=== PATIENT | female | born 1980 | race Caucasian/White ===

== ENCOUNTER 2017-01-26 21:21 | Emergency (ER) | payer MEDICAID ==
[~2017-01-26] VITALS: Ht 162.6 cm; Wt 100.2 kg
[2017-01-26 21:24] VITALS: BP 148/90
--- NOTE | 2017-01-27 00:02 | NUR ---
PT TAKEN TO BED 4
[2017-01-27 00:03] VITALS: BP 148/90
--- NOTE | 2017-01-27 00:06 | NUR ---
PT IS 36Y/F C/O LEFT ARM PAIN, AND NUMBNESS FOR 2 DAYS
[2017-01-27] MEDS ORDERED: KETOROLAC 30 MG/ML VIAL IVP ONE (00:25)
== END 2017-01-27 01:45 | disposition home or self-care (01) ==
LOC: MED 21:21
DX: M25.512 Pain in left shoulder (principal); R20.0 Anesthesia of skin; R51 Headache; M54.2 Cervicalgia
CPT/HCPCS: 36415; 80053; 82553; 83880; 84484; 85025; 85379; 85610; 85730; 93005; 96374; 99285; J1885

== ENCOUNTER 2020-04-13 14:27 | Inpatient (IN) | payer MEDICAID, SELFPAY ==
[~2020-04-13] VITALS: Ht 170.2 cm; Wt 104.8 kg
[2020-04-13 14:32] VITALS: BP 157/94
--- NOTE | 2020-04-13 14:46 | NUR ---
COVID HOSPITAL POLICY FOLLOWED PT WITH MASK BEFORE ENTERING ER PT PLACED IN ISOLATION ROOM COVID COVID SIGN AT BEDSIDE RN FULL PPE
--- NOTE | 2020-04-13 14:46 | NUR ---
39 Y/O F C/C MYALGIA,COUGH,H/A X 8 DAYS. PER PT SEEN AT A CLINIC WEDNESDAY DUE TO FEVER, GIVEN IBUPROFEN PRN. PT PRESENTS IN NO RESPIRATORY DISTRESS, EUPNIC, AFEBRILE, VSS. 96% RA, EQUAL TIDAL VOLUME, LS CLEAR. S1S2 WNL. PT NKA. NO HX. NO RX. NO NVD. SIDE RAIL X1. Addendum: 04/13/20 at 1450 by MEDOF PER PT HEMOPTYSIS X 2 DAYS.
--- NOTE | 2020-04-13 15:05 | NUR ---
PT PLACED FULL FOWLERS. 92% RA. NO RESPIRATORY DISTRESS. DENIES SOB. PT EUPNIC. PLACED ON 2L NC FOR COMFORT.
--- NOTE | 2020-04-13 15:40 | NUR ---
PT ON ROOM AIR PER ERMD. 92% RA. EUPNIC. WILL CONTINUE TO MONITOR. ERMD NOTIFIED.
--- NOTE | 2020-04-13 15:45 | NUR ---
RAD AT BEDSIDE
[2020-04-13] MEDS ORDERED: KETOROLAC 30 MG/ML VIAL IVP ONE (16:00)
--- NOTE | 2020-04-13 16:43 | NUR ---
RT AT BEDSIDE
--- NOTE | 2020-04-13 16:45 | NUR ---
BLOOD COLLECTED AND GIVEN TO LAB
--- NOTE | 2020-04-13 16:45 | NUR ---
COVID SWAB/FLU SWAB COLLECTED AND GIVEN TO LAB
--- NOTE | 2020-04-13 16:45 | NUR ---
PT PLACED IN FULL FOWLERS, 2L NC, PT EUPNIC. NO RESPIRATORY DISTRESS. SIDE RAIL X1.
[2020-04-13] MEDS ORDERED: AZITHROMYCIN 500 MG in DEXTROSE 5% 250 ML IV ONE (17:00)
[2020-04-13 17:02] LABS: BASOPHILS % (AUTO) 0.8 % (0.0-2.0); HEMOGLOBIN 12.8 g/dL (12.0-16.0); LYMPHOCYTES # (AUTO) 0.8 K/uL (2.5-16.5); LYMPHOCYTES % (AUTO) 25.7 % (20.5-51.1); MEAN CORPUSCULAR HEMOGLOBIN 28 pg (27-31); MEAN CORPUSCULAR HGB CONC 34 g/dL (33-37); MONOCYTES # (AUTO) 0.3 K/uL (0.8-1.0); MONOCYTES % (AUTO) 9.8 % (1.7-9.3); NEUTROPHILS # (AUTO) 2.1 K/uL (1.8-7.7); NEUTROPHILS % (AUTO) 63.7 % (42.2-75.2); PLATELET COUNT (AUTO) 215 K/uL (140-450); RED BLOOD CELL COUNT(AUTO) 4.58 MIL/uL (4.20-5.40); RED CELL DISTRIBUTION WIDTH 15.2 % (11.6-13.7); WHITE BLOOD COUNT (AUTO) 3.2 K/uL (4.8-10.8)
[2020-04-13] MEDS ORDERED: cefTRIAXone 1,000 MG VIAL ONE (17:03)
[2020-04-13 17:06] LABS: APPEARANCE,URINE SL CLOUDY (CLEAR); BILIRUBIN,URINE NEGATIVE (NEGATIVE); BLOOD, URINE 1+ (NEGATIVE); COLOR,URINE DARK YELLOW (YELLOW); LEUKOCYTE ESTERASE ,URINE NEGATIVE (NEGATIVE); NITRITE, URINE NEGATIVE (NEGATIVE); UGLUCOSE NEGATIVE (NEGATIVE)
[2020-04-13 17:11] LABS: PROTHROMBIN TIME 9.3 secs (10.8-13.4)
[2020-04-13 17:13] LABS: ALBUMIN 2.9 g/dL (3.4-5.0); ANION GAP 9.6 (8-16); CARBON DIOXIDE 31.3 mmol/L (21-32); CREATININE 0.7 mg/dL (0.6-1.3); TOTAL BILIRUBIN 0.4 mg/dL (0.0-1.0)
[2020-04-13] MEDS ORDERED: AZITHROMYCIN 500 MG INJ VIAL IV ONE (17:13)
[2020-04-13 17:14] LABS: POTASSIUM 2.9 mmol/L (3.5-5.1)
[2020-04-13 17:19] LABS: C-REACTIVE PROTEIN QUANT 12.8 mg/dL (0.0-0.9)
[2020-04-13] MEDS ORDERED: KCL 20 MEQ/WATER INJ PREMIX 100 ML IV ONE (17:20)
[2020-04-13 17:24] LABS: WBC,URINE 0-5 /HPF (0-5)
[2020-04-13 17:30] LABS: LACTATE DEHYDROGENASE 311 U/L (81-234)
[2020-04-13 19:09] VITALS: BP 144/95
--- NOTE | 2020-04-13 19:09 | NUR ---
PATIENT RECEIVED FROM ED ESCORTED BY ED NURSE. PATIENT AMBULATORY NO SIGNS OF DISTRESS NOTED. RESPIRATIONS EVEN AND UNLABORED ON 2L O2 VIA NC SPO2 AT 96%. IV INTACT AND RUNNING WITH REMAINING POTASSIUM. TELE MONITOR ATTACHED AND CONTINUOUS SPO2 MONITORING IN PLACE. PATIENT ORIENTED TO ROOM. PATIENT STATES SHE IS HUNGRY REQUESTED FOR A SANDWICH TO BE SENT OVER FROM [employer]. WILL CONTINUE TO MONITOR
--- NOTE | 2020-04-13 19:17 | NUR ---
Patient will be admitted to care of [facility]. Admited to TELEMETRY. Will go to room 115. Belongings list completed. Report to LA NENA CASTILLO.
[2020-04-13] MEDS: NACL 0.9% 1,000 ML IV SCH (19:26)
[2020-04-13] MEDS ORDERED: ACETAMINOPHEN 325 MG TAB PO PRN (19:30)
[2020-04-13] MEDS ORDERED: ONDANSETRON 4 MG/2 ML VIAL IM/IVP PRN (19:30)
[2020-04-13] MEDS ORDERED: POTASSIUM CHLORIDE 10 MEQ TABER PO ONE ×2 (19:35→20:48)
[2020-04-13] MEDS ORDERED: ALBUTEROL HFA MDI 90 MCG/ACTUATION 8 GM INH PRN (19:45)
[2020-04-13 19:59] LABS: BARBITURATE, URINE NEGATIVE ng/ml (NEG <=200); BENZODIAZEPINE, URINE NEGATIVE ng/mL (NEG <=200); CANNABINOID, URINE NEGATIVE ng/mL (NEG <=50); COCAINE, URINE NEGATIVE ng/mL (NEG <=300); OPIATE, URINE NEGATIVE ng/mL (NEG <=2000); PHENCYCLIDINE SCREEN,URINE NEGATIVE ng/mL (NEG <=25)
[2020-04-13 20:13] LABS: CHOL/HDL RATIO 2.5 (1-4.5); FREE T4 (FREE THYROXINE) 0.97 ng/dL (0.76-1.46); MAGNESIUM 1.9 mg/dL (1.8-2.4); PHOSPHORUS 2.2 mg/dL (2.5-4.9); THYROID STIMULATING HORMONE 12.96 uIU/mL (0.34-3.74)
[2020-04-13] MEDS: ZINC SULF 220 MG CAP PO SCH (20:51)
[2020-04-13] MEDS: ASCORBIC ACID 500 MG TAB PO SCH (20:51)
--- NOTE | 2020-04-13 20:51 | NUR ---
ADMINISTERED 2100 MEDICATIONS THAT WERE VERIFIED. PATIENT TOLERATED WELL NO SIGNS OF DISTRESS NOTED. RESPIRATIONS EVEN AND UNLABORED ON 2L O2 VIA NC. SPO2 AT 97%. ALL MONITORS ATTACHED, IV INFUSING WITHOUT DIFFICULTY AND CALL LIGHT WITHIN REACH
[2020-04-13] MEDS ORDERED: SODIUM PHOS / POTASSIUM PHOS 1 PKT PDR PO ONE (22:25)
[2020-04-13] MEDS: ENOXAPARIN 100 MG/ML SYR SUBQ SCH (22:41)
--- NOTE | 2020-04-13 22:41 | NUR ---
ADMINISTERED 2225 MEDICATION THAT WAS JUST VERIFIED. I WAS ABOUT TO ENTER THE PATIENTS ROOM TO ADMINISTER MEDICATIONS THE PATIENT INDICATED THAT SHE WAS EXPERIENCING BODY ACHE 6/10 GENERALIZED. STATES ITS HARD FOR HER TO REPOSITION HERSELF. I WENT TO GET NORCO AND MEDICATED PER MD ORDER. OTHER MEDICATIONS WERE SCANNED IN PRIOR TO ENTERING THE ROOM DUE TO COVID-19 DROPLET PRECAUTIONS. I DID NOT REMEMBER TO SCAN THE NORCO THAT WAS GRABBED AT THE LAST MINUTE. I DOCUMENTED THE ADMINISTRATION AFTER THE FACT. AND INDICATED THE CORRECT ADMINISTRATION TIME UNDER THE ASSESSMENT PORTION. PATIENT TOLERATED WELL NO SIGNS OF DISTRESS NOTED. WILL REASSESS PAIN. MD REQUESTED A SPUTUM SAMPLE TO BE OBTAINED. PLACED SPECIMEN CUP IN THE ROOM WITH THE PATIENT AND EXPLAINED WHEN SHE COUGHED UP SPUTUM TO PLACE IT IN THE CUP AND INFORM ME TO TAKE TO THE LAB. PATIENT VERBALIZED UNDERSTANDING. WILL FOLLOW-UP
--- NOTE | 2020-04-13 23:41 | NUR ---
PAIN REASSESSED. PATIENT IS RESTING. NO SIGNS OF DISTRESS NOTED. RESPIRATIONS ARE EVEN AND UNLABORED ON 2L O2 AND SPO2 AT 97%. WILL CONTINUE TO MONITOR
[2020-04-14] VITALS: BP 124/75
[2020-04-14] MEDS: HYDROcodone/APAP 7.5/325 MG 1 TAB PO PRN ×2 (00:43→12:57)
--- NOTE | 2020-04-14 02:30 | NUR ---
ROUNDING. PATIENT IS AWAKE. STATES SHE FEELS WARM. TEMPERATURE ASSESSED AND WNL. ROOM TEMP FELT WARM DECREASED TEMP IN THE ROOM A FEW DEGREES FOR PATIENT COMFORT
[2020-04-14 04:00] VITALS: BP 136/84
--- NOTE | 2020-04-14 04:30 | NUR ---
OBTAINED AM VITALS. PATIENT RESTING NO SIGNS OF DISTRESS NOTED. RESPIRATIONS EVEN AND UNLABORED ON 2L SPO2 AT 96%. ALL MONITORS ATTACHED WILL CONTINUE TO MONITOR
--- NOTE | 2020-04-14 06:25 | NUR ---
ROUNDING PATIENT RESTING NO SIGN OF DISTRESS NOTED. ALL MONITORS ATTACHED WILL CONTINUE TO MONITOR
[2020-04-14 06:45] LABS: BASOPHILS % (AUTO) 0.6 % (0.0-2.0); EOSINOPHILS % (AUTO) 0.5 % (0.0-4.0); HEMATOCRIT 36.2 % (36-48); HEMOGLOBIN 12.1 g/dL (12.0-16.0); LYMPHOCYTES # (AUTO) 1.1 K/uL (2.5-16.5); LYMPHOCYTES % (AUTO) 36.9 % (20.5-51.1); MEAN CORPUSCULAR HEMOGLOBIN 28 pg (27-31); MEAN CORPUSCULAR HGB CONC 33 g/dL (33-37); MEAN CORPUSCULAR VOLUME 83.4 fL (80-94); MONOCYTES # (AUTO) 0.3 K/uL (0.8-1.0); MONOCYTES % (AUTO) 9.9 % (1.7-9.3); NEUTROPHILS # (AUTO) 1.6 K/uL (1.8-7.7); NEUTROPHILS % (AUTO) 52.1 % (42.2-75.2); PLATELET COUNT (AUTO) 211 K/uL (140-450); RED BLOOD CELL COUNT(AUTO) 4.34 MIL/uL (4.20-5.40); RED CELL DISTRIBUTION WIDTH 15.3 % (11.6-13.7); WHITE BLOOD COUNT (AUTO) 3.1 K/uL (4.8-10.8)
[2020-04-14 07:01] LABS: ALBUMIN 2.4 g/dL (3.4-5.0); ANION GAP 9.7 (8-16); CREATININE 0.6 mg/dL (0.6-1.3); MAGNESIUM 1.9 mg/dL (1.8-2.4); PHOSPHORUS 2.6 mg/dL (2.5-4.9); POTASSIUM 3.7 mmol/L (3.5-5.1); TOTAL BILIRUBIN 0.3 mg/dL (0.0-1.0)
--- NOTE | 2020-04-14 07:21 | NUR ---
ENDORSED PATIENT TO DAYSHIFT NURSE FOR CONTINUITY OF CARE. PATIENT IN STABLE CONDITION
--- NOTE | 2020-04-14 07:22 | NUR ---
RECEIVED REPORT FROM TEST CASE DEVELOPER NURSE. PT IN BED. AOX4, NO C/O PAIN, NO SOB, RESPIRATIONS ARE EVEN AND UNLABORED. ON 2LPM O2 VIA NC. WITH IV ON RH 20G RUNNING NS AT 60CC/HR AND LW 22G. WITH SKIN INTACT. SAFETY MEASURES IN PLACE. CALL LIGHT WITHIN REACH. WILL CONTINUE TO MONITOR.
[2020-04-14] MEDS: LEVOTHYROXINE 0.05 MG TAB PO SCH (07:30)
--- NOTE | 2020-04-14 07:44 | NUR ---
PATIENT HAS BEEN SCREENED AND CATEGORIZED HIGH NUTRITION RISK. PATIENT WILL BE SEEN WITHIN 1-2 DAYS OF ADMISSION. 04/14/20-04/15/20 ALEC BENJAMIN MS, RDN
[2020-04-14 08:00] VITALS: BP 125/87
--- NOTE | 2020-04-14 08:57 | NUR ---
PT IN NO DISTRESS AT THIS TIME SAT 96 HR 68 ON 2LNC PT WAS EDUCATED ON IS PT DID 8 BREATHS AT 650-700
[2020-04-14] MEDS: LACTOBACILLUS RHAMNOSUS GG 1 EACH CAP PO SCH (09:00)
[2020-04-14] MEDS: ENOXAPARIN 100 MG/ML SYR SUBQ SCH ×2 (09:00→21:15)
[2020-04-14] MEDS: LISINOPRIL 10 MG TAB PO SCH (09:00)
[2020-04-14] MEDS: ASCORBIC ACID 500 MG TAB PO SCH (09:00)
[2020-04-14] MEDS: ZINC SULF 220 MG CAP PO SCH (09:00)
--- NOTE | 2020-04-14 09:35 | NUR ---
DUE MEDS GIVEN. TOLERATED WELL. ASSISTED TO BATHROOM
[2020-04-14 12:00] VITALS: BP 139/92
--- NOTE | 2020-04-14 12:50 | NUR ---
WITH C/O BACK PAIN 05/17. NORCO GIVEN ORDERED. WILL REASSESS IN 1 HOUR
[2020-04-14] MEDS: NACL 0.9% 1,000 ML IV SCH ×2 (12:56→21:37)
--- NOTE | 2020-04-14 14:30 | NUR ---
PT IN BED. NO C/O PAIN, NO SOB, AFEBRILE, NO COMPLAINTS AT THIS TIME
[2020-04-14 16:00] VITALS: BP 136/82
[2020-04-14] MEDS ORDERED: MORPHINE SULFATE 2 MG/ML SYR IVP PRN (16:00)
[2020-04-14] MEDS: BENZONATATE 100 MG CAPLF PO SCH (17:01)
[2020-04-14] MEDS: AZITHROMYCIN 250 MG in DEXTROSE 5% 250 ML IV SCH (17:01)
--- NOTE | 2020-04-14 17:15 | NUR ---
PT IN BED WATCHING TV. NO APPARENT DISTRESS. NO COMPLAINTS AT THIS TIME. DUE AZITHROMYCIN IVPB GIVEN ORDERED. INFUSING WELL
--- NOTE | 2020-04-14 18:45 | NUR ---
WILL ENDORSE TO NEXT SHIFT FOR CONTINUITY OF CARE. IN STABLE CONDITION AT THIS TIME
--- NOTE | 2020-04-14 19:00 | NUR ---
RECEIVED PT FROM ROSITA RN PT IS AAOX4 AMBULATORY S[CRISSY S[PARAGLER PM TELEMETRY SR IV O;N; RT HAND INFUSING WELL DRY COUGH NOT DISTRESS NOTED, ON 12 10 LTS VIA NC
[2020-04-14 20:00] VITALS: BP 136/89
--- NOTE | 2020-04-14 22:00 | NUR ---
PT IS ASSISTED TO THE RESTROOM NOT DISTRESS NOTED PT VOIDING WELL ON TELEMETRY SR
[2020-04-15] VITALS: BP 123/79
--- NOTE | 2020-04-15 02:17 | NUR ---
PT SLEEPING WELL, NOT DISTRESS NOTED ON 12 10 LTS VIA NC ON TELEMETRY SR
[2020-04-15 04:00] VITALS: BP 138/90
--- NOTE | 2020-04-15 04:00 | NUR ---
SPONGE BATH GIVEN LINEN CHANGED, PT IS ASSISTED TO GO TO THE RESTROOM, VOIDING WELL, ON TELEMETRY SSR IV ON RT YOLANDA INFUSING WELL
[2020-04-15] MEDS: LEVOTHYROXINE 0.05 MG TAB PO SCH (05:49)
[2020-04-15 06:59] LABS: BASOPHILS % (AUTO) 0.7 % (0.0-2.0); EOSINOPHILS % (AUTO) 0.5 % (0.0-4.0); HEMATOCRIT 36.5 % (36-48); LYMPHOCYTES # (AUTO) 1.1 K/uL (2.5-16.5); LYMPHOCYTES % (AUTO) 27.3 % (20.5-51.1); MEAN CORPUSCULAR HEMOGLOBIN 28 pg (27-31); MEAN CORPUSCULAR HGB CONC 33 g/dL (33-37); MONOCYTES # (AUTO) 0.6 K/uL (0.8-1.0); MONOCYTES % (AUTO) 14.1 % (1.7-9.3); NEUTROPHILS # (AUTO) 2.4 K/uL (1.8-7.7); NEUTROPHILS % (AUTO) 57.4 % (42.2-75.2); PLATELET COUNT (AUTO) 242 K/uL (140-450); RED BLOOD CELL COUNT(AUTO) 4.34 MIL/uL (4.20-5.40); RED CELL DISTRIBUTION WIDTH 15.7 % (11.6-13.7); WHITE BLOOD COUNT (AUTO) 4.1 K/uL (4.8-10.8)
--- NOTE | 2020-04-15 07:00 | NUR ---
PT AMBULATES TO THE RESTROOM VOIDING WELL ON TELE SR, NOT SPUTUM CAN BE COLLECTED PT HAS VERY DRY COUGH, PT WILL BE ENDORSED TO DAY SHIFT NURSE FOR CONTINUE OF CARE
--- NOTE | 2020-04-15 07:05 | NUR ---
RECEIVED BEDSIDE REPORT FROM NIGHTSHIFT NURSE. PT RESTING IN BED. ABLE TO MAKE NEEDS KNOWN. RESPIRATIONS EVEN AND UNLABORED WITH NO SOB OR RESPIRATORY DISTRESS. SKIN WARM AND DRY TO TOUCH. IV SITE IN R HAND 22G IS CLEAN, DRY, AND INTACT. SAFETY MEASURES IN PLACE. WILL CONTINUE TO MONITOR
[2020-04-15 08:00] VITALS: BP 129/84
[2020-04-15 08:25] LABS: ANION GAP 9.1 (8-16); CARBON DIOXIDE 30.4 mmol/L (21-32); POTASSIUM 3.5 mmol/L (3.5-5.1)
[2020-04-15 08:26] LABS: CREATININE 0.4 mg/dL (0.6-1.3)
[2020-04-15 08:27] LABS: ALBUMIN 2.5 g/dL (3.4-5.0); TOTAL BILIRUBIN 0.4 mg/dL (0.0-1.0)
[2020-04-15] MEDS: ENOXAPARIN 100 MG/ML SYR SUBQ SCH ×2 (09:35→21:24)
[2020-04-15] MEDS: ASCORBIC ACID 500 MG TAB PO SCH (09:37)
[2020-04-15] MEDS: LACTOBACILLUS RHAMNOSUS GG 1 EACH CAP PO SCH (09:37)
[2020-04-15] MEDS: ZINC SULF 220 MG CAP PO SCH (09:38)
[2020-04-15] MEDS: BENZONATATE 100 MG CAPLF PO SCH ×3 (09:38→16:29)
[2020-04-15] MEDS: LISINOPRIL 10 MG TAB PO SCH (09:39)
--- NOTE | 2020-04-15 09:44 | NUR ---
ADMINISTERED SCHED MED PRESCRIBED PER MD ORDER. PT TOLERATED WELL. MEDICATION EDUCATION PERFORMED. PT RETURN DEMONSTRATION. SAFETY MEASURES IN PLACE. WILL CONTINUE TO MONITOR
--- NOTE | 2020-04-15 11:15 | NUR ---
PT RESTING IN BED. ABLE TO MAKE NEEDS KNOWN. RESPIRATIONS EVEN AND UNLABORED WITH NO SOB OR RESPIRATORY DISTRESS. SKIN WARM AND DRY TO TOUCH. SAFETY MEASURES IN PLACE. WILL CONTINUE TO MONITOR
[2020-04-15 12:00] VITALS: BP 126/84
--- NOTE | 2020-04-15 13:12 | NUR ---
ADMINISTERED SCHED MED PRESCRIBED PER MD ORDER. PT TOLERATED WELL. MEDICATION EDUCATION PERFORMED. PT RETURN DEMONSTRATION. SAFETY MEASURES IN PLACE. WILL CONTINUE TO MONITOR
--- NOTE | 2020-04-15 13:21 | NUR ---
DC PLANNIN YRS OLD FEMALE PATIENT WAS ADMITTED FROM HOME WITH A DX OF PNEUMONIA R/O COVID AND HYPOXIA. PT HAS NO MEDICAL HISTORY. CXR SHOWED MILD PATCHY AIRSPACE VS INFILTRATE. COVID TEST POSITIVE .SPUTUM, BLOOD AND URINE CULTURE PENDING. ADMINISTERED FULL DOSE OF ANTICOAGULANT , RAMDESEVIR IV, ROCEPHIN AND AZITHROMYCIN . RT PROTOCOL SEEN BY VICTOR HUGO WESTON RECOMMENDED ENROLLMENT IN CONVALESCENT PLASMA AND ENCOURAGE PRONE POSITION. DC PLAN TO GO HOME WHEN STABLE CM TO FOLLOW. Addendum: 04/16/20 at 1242 by Danielle Summers CM DC PLANNING: SEEN BY VICTOR HUGO WESTON CONTINUE REMDISIVIR AND AWAITING FOR CONVALESCENT PLASMA . OFF ABX PER ID ,CONTINUE FULL DOSE OF ANTICOAGULATION. AND RECOMMENDED AND ENCOURAGE PRONE POSITION. DC PLAN PER PT'S RESPONSE TO TREATMENTS. CM TO FOLLOW .
--- NOTE | 2020-04-15 13:30 | NUR ---
04/15/20 RD INITIAL ASSESSMENT COMPLETED PLEASE REFER TO NUTRITION ASSESSMENT UNDER CARE ACTIVITY FOR ESTIMATED NUTRITIONAL NEEDS. 1. CONTINUE REGULAR DIET TOLERATED 2. RECOMMEND ENSURE BID 3. ENCOURAGE INCREASING PO INTAKE 4. RD TO FOLLOW-UP 3-5 DAYS, MODERATE RISK HILTON DISLA, RD
--- NOTE | 2020-04-15 14:00 | NUR ---
RESIDENT ORDERED CONSENT FOR PLASMA COVID ANTIBODIES. WENT OVER INSTRUCTIONS WITH PT. PT VERBALIZED UNDERSTANDING AND SIGNED CONSENT. CONSENT HANDED BACK TO DR. GERONIMO. WILL CONTINUE TO MONITOR
--- NOTE | 2020-04-15 14:42 | NUR ---
Echocardiogram pending due to Positive COVID-19, Dr. Palomino said to hold off on the echo.
[2020-04-15 16:00] VITALS: BP 129/84
--- NOTE | 2020-04-15 16:37 | NUR ---
ADMINISTERED SCHED MED PRESCRIBED PER MD ORDER. PT TOLERATED WELL. MEDICATION EDUCATION PERFORMED. PT RETURN DEMONSTRATION. SAFETY MEASURES IN PLACE. WILL CONTINUE TO MONITOR
[2020-04-15] MEDS: AZITHROMYCIN 250 MG in DEXTROSE 5% 250 ML IV SCH (17:52)
--- NOTE | 2020-04-15 17:53 | NUR ---
ADMINISTERED SCHED MED PRESCRIBED PER MD ORDER. PT TOLERATED WELL. MEDICATION EDUCATION PERFORMED. PT RETURN DEMONSTRATION. SAFETY MEASURES IN PLACE. WILL CONTINUE TO MONITOR
--- NOTE | 2020-04-15 19:10 | NUR ---
ENDORSED AT BEDSIDE TO NIGHTSHIFT NURSE FOR CONTINUITY OF CARE. PT IS STABLE
--- NOTE | 2020-04-15 19:11 | NUR ---
RECEIVED BEDSIDE REPORT FROM AM SHIFT NURSEZOË. PT A O X 4, AMBULATORY.PT RESTING IN BED. ABLE TO MAKE NEEDS KNOWN. RESPIRATIONS EVEN AND UNLABORED WITH NO SOB OR RESPIRATORY DISTRESS. SKIN WARM AND DRY TO TOUCH. IV SITE IN R HAND 22G CLEAN, DRY, INTACT W/ IVF RUNNING AT ORDERED DOSE. SAFETY MEASURES IN PLACE. WILL CONTINUE TO MONITOR.
--- NOTE | 2020-04-15 19:12 | NUR ---
PATIENT C/O OF HAVING CONSTIPATION WILL ADMINISTER COLACE ORDERED PRN
[2020-04-15] MEDS: NACL 0.9% 1,000 ML IV SCH (22:06)
--- NOTE | 2020-04-15 23:00 | NUR ---
PATIENT SLEEPING, NO RESPIRATORY DISTRESS, NO COMPLAINTS OF PAIN
[2020-04-16] VITALS: BP 142/91
--- NOTE | 2020-04-16 01:00 | NUR ---
PATIENT SLEEPING, NO COMPLAINTS OF PAIN AND RESPIRATORY DISTRESS
[2020-04-16] MEDS: DOCUSATE SODIUM 100 MG GELCAP PO PRN (02:45)
--- NOTE | 2020-04-16 03:00 | NUR ---
CHECKED ON PATIENT, SLEEPING EASILY AROUSABLE, WILL ENDORSE TO NEXT SHIFT
[2020-04-16 04:00] VITALS: BP 136/72
--- NOTE | 2020-04-16 05:00 | NUR ---
PT SLEEPING NO SIGNS AND SYMPTOMS OF RESPIRATORY DISTRESS WILL ENDORSE TO NEXT SHIFT
[2020-04-16] MEDS: LEVOTHYROXINE 0.05 MG TAB PO SCH (05:08)
--- NOTE | 2020-04-16 06:49 | NUR ---
PT STABLE CONDITION, A, A, O X 4. WILL ENDORSE TO NEXT SHIFT
[2020-04-16 07:03] LABS: ALBUMIN 2.5 g/dL (3.4-5.0); ANION GAP 11.7 (8-16); CARBON DIOXIDE 29.7 mmol/L (21-32); CREATININE 0.7 mg/dL (0.6-1.3); PHOSPHORUS 2.9 mg/dL (2.5-4.9); POTASSIUM 3.4 mmol/L (3.5-5.1); TOTAL BILIRUBIN 0.4 mg/dL (0.0-1.0)
--- NOTE | 2020-04-16 07:20 | NUR ---
RECEIVED BEDSIDE REPORT FROM STORE RECEIVING CLERK RNJULIA, FOR CONTINUITY OF CARE. PT AOX4, AMBULATORY. PT RESTING IN BED. ABLE TO MAKE NEEDS KNOWN. PT. ON 2LPM O2 VIA NC, RESPIRATIONS EVEN AND UNLABORED WITH NO SOB OR RESPIRATORY DISTRESS, SAO2 OF 97%. SKIN WARM AND DRY TO TOUCH. IV SITE IN R HAND 22G CLEAN, DRY, INTACT W/ IVF RUNNING AT ORDERED DOSE. SAFETY MEASURES IN PLACE. DROPLET PRECAUTION IN PLACE. PLAN OF CARE DISCUSSED. CALL LIGHT WITHIN REACH. WILL CONTINUE TO MONITOR.
[2020-04-16 07:25] LABS: BASOPHILS % (AUTO) 0.4 % (0.0-2.0); EOSINOPHILS # (AUTO) 0.1 K/uL (0-0.4); EOSINOPHILS % (AUTO) 1.6 % (0.0-4.0); HEMATOCRIT 37.3 % (36-48); HEMOGLOBIN 12.5 g/dL (12.0-16.0); LYMPHOCYTES # (AUTO) 1.1 K/uL (2.5-16.5); LYMPHOCYTES % (AUTO) 32.8 % (20.5-51.1); MEAN CORPUSCULAR HEMOGLOBIN 28 pg (27-31); MEAN CORPUSCULAR HGB CONC 34 g/dL (33-37); MEAN CORPUSCULAR VOLUME 83.4 fL (80-94); MONOCYTES # (AUTO) 0.6 K/uL (0.8-1.0); MONOCYTES % (AUTO) 17.3 % (1.7-9.3); NEUTROPHILS # (AUTO) 1.5 K/uL (1.8-7.7); NEUTROPHILS % (AUTO) 47.9 % (42.2-75.2); PLATELET COUNT (AUTO) 273 K/uL (140-450); RED BLOOD CELL COUNT(AUTO) 4.48 MIL/uL (4.20-5.40); RED CELL DISTRIBUTION WIDTH 15.3 % (11.6-13.7); WHITE BLOOD COUNT (AUTO) 3.2 K/uL (4.8-10.8)
[2020-04-16 08:00] VITALS: BP 141/86
[2020-04-16] MEDS ORDERED: REMDESIVIR 200 MG IV SCH (09:00)
[2020-04-16] MEDS ORDERED: COMMUNICATION ORDER MC SCH (09:00)
--- NOTE | 2020-04-16 09:00 | NUR ---
PT. ASSESSED. RESPIRATIONS EVEN AND NON-LABORED, WITH SAO2 OF 96%. NO SIGNS OF DISTRESS. PT. COMPLAINS OF DIFFICULTY DEEP BREATHING, LUNG SOUNDS WITH CRACKLES. REFUSES PAIN MEDICATIONS BUT WILL TAKE COUGH MEDICATION INSTEAD. INTERMITTENT DRY COUGH PRESENT. HEART SOUNDS REGULAR, S1 &S2, BILATERAL PULSES EQUAL WITH 75 BPM. NO EDEMA PRESENT. IV INTACT. WILL CONTINUE TO MONITOR.
--- NOTE | 2020-04-16 09:00 | NUR ---
SCHEDULED MEDICATIONS DUE GIVEN. WILL CONTINUE TO MONITOR. Addendum: 04/16/20 at 2130 by Henry Zurita RN DISREGARD NOTE ABOVE, WRONG TIME
[2020-04-16] MEDS: ENOXAPARIN 100 MG/ML SYR SUBQ SCH ×2 (09:25→20:03)
--- NOTE | 2020-04-16 09:25 | NUR ---
MORNING MEDICATIONS GIVEN. NO SIGNS OF DISTRESS NOTED. PT. VERBALIZES NO PAIN. WILL CONTINUE TO MONITOR.
[2020-04-16] MEDS: BENZONATATE 100 MG CAPLF PO SCH ×3 (09:26→17:20)
[2020-04-16] MEDS: ZINC SULF 220 MG CAP PO SCH (09:27)
[2020-04-16] MEDS: ASCORBIC ACID 500 MG TAB PO SCH (09:27)
[2020-04-16] MEDS: LACTOBACILLUS RHAMNOSUS GG 1 EACH CAP PO SCH (09:27)
[2020-04-16] MEDS: LISINOPRIL 10 MG TAB PO SCH (09:28)
[2020-04-16] MEDS: VITAMIN D 400 IU TAB PO SCH (09:28)
[2020-04-16] MEDS: CLINICAL MONITORING MC SCH (09:46)
--- NOTE | 2020-04-16 10:50 | NUR ---
REMDESEVIR IVPB GIVEN. PT. VERBALIZES NO PAIN, NO SIGNS OF DISTRESS NOTED. WILL CONTINUE TO MONITOR.
[2020-04-16 12:00] VITALS: BP 148/89
--- NOTE | 2020-04-16 13:05 | NUR ---
AFTERNOON MEDICATIONS GIVEN. NO SIGNS OF DISTRESS NOTED. V/S TAKEN, PT. VERBALIZES NO PAIN. WILL CONTINUE TO MONITOR.
--- NOTE | 2020-04-16 14:30 | NUR ---
RODOLFO HANDOUT GIVEN. TEACHINGS ABOUT MEDICATION GIVEN WELL, PT. VERBALIZES UNDERSTANDING. WILL CONTINUE TO MONITOR.
[2020-04-16 16:00] VITALS: BP 159/87
--- NOTE | 2020-04-16 17:15 | NUR ---
COUGH MEDICATION GIVEN. NO SIGNS OF DISTRESS NOTED. V/S TAKEN, BP 159/87. WILL REPORT TO MD. WILL CONTINUE TO MONITOR.
--- NOTE | 2020-04-16 17:30 | NUR ---
SPOKE TO DR. HERNÁNDEZ ABOUT PT'S BLOOD PRESSURE OF 159/87, MD WILL PUT IN ORDERS. WILL CONTINUE TO MONITOR.
[2020-04-16] MEDS ORDERED: LISINOPRIL 10 MG TAB PO SCH ×2 (18:20→19:00)
--- NOTE | 2020-04-16 18:35 | NUR ---
LISINOPRIL PO GIVEN FOR BP OF 159/87. NO SIGNS OF DISTRESS NOTED. WILL CONTINUE TO MONITOR.
[2020-04-16] MEDS ORDERED: hydrALAZINE 20 MG/ML VIAL IVP SCH (18:45)
--- NOTE | 2020-04-16 19:10 | NUR ---
ENDORSED TO PM SHIFT RN, ZHANE, FOR CONTINUITY OF CARE.
--- NOTE | 2020-04-16 19:11 | NUR ---
RECEIVED REPORT FROM DAY SHIFT NURSE. PATIENT LYING IN BED WATCHING TV. NO DISTRESS NOTED. DENIES ANY PAIN. AAOX4, CALM, COOPERATIVE,SKIN INTACT. RESPIRATIONS EVEN, UNLABORED, ON O2 2L/MIN VIA NC. IV SITE INTACT, PATENT, AND INFUSING IVF PER MD ORDERS. REVIEWED PLAN OF CARE WITH PATIENT. PATIENT VERBALIZED UNDERSTANDING. SAFETY MEASURES IN PLACE, CALL LIGHT WITHIN REACH. WILL CONTINUE TO MONITOR.
[2020-04-16 20:00] VITALS: BP 147/83
--- NOTE | 2020-04-16 21:00 | NUR ---
SCHEDULED MEDICATIONS DUE GIVEN. WILL CONTINUE TO MONITOR.
[2020-04-16] MEDS: NACL 0.9% 1,000 ML IV SCH (21:37)
[2020-04-17] VITALS: BP 137/75
--- NOTE | 2020-04-17 00:05 | NUR ---
1 UNIT PLASMA STARTED. WILL CONTINUE TO MONITOR.
--- NOTE | 2020-04-17 02:08 | NUR ---
PATIENT LYING DOWN IN BED SLEEPING, 1 UNIT PLASMA INFUSING STILL. NO REACTIONS NOTED. WILL CONTINUE TO MONITOR.
[2020-04-17 04:00] VITALS: BP 118/73
--- NOTE | 2020-04-17 04:15 | NUR ---
PATIENT LYING DOWN IN BED SLEEPING, AROUSABLE BY VOICE. NO DISTRESS NOTED. WILL CONTINUE TO MONITOR.
[2020-04-17] MEDS: LEVOTHYROXINE 0.05 MG TAB PO SCH (05:55)
--- NOTE | 2020-04-17 05:56 | NUR ---
SCHEDULED MEDICATIONS DUE GIVEN. WILL CONTINUE TO MONITOR.
[2020-04-17 07:03] LABS: BASOPHILS % (AUTO) 0.8 % (0.0-2.0); HEMATOCRIT 37.2 % (36-48); HEMOGLOBIN 12.4 g/dL (12.0-16.0); LYMPHOCYTES # (AUTO) 1.3 K/uL (2.5-16.5); LYMPHOCYTES % (AUTO) 32.8 % (20.5-51.1); MEAN CORPUSCULAR HEMOGLOBIN 28 pg (27-31); MEAN CORPUSCULAR HGB CONC 33 g/dL (33-37); MEAN CORPUSCULAR VOLUME 83.5 fL (80-94); MONOCYTES # (AUTO) 0.5 K/uL (0.8-1.0); MONOCYTES % (AUTO) 12.2 % (1.7-9.3); NEUTROPHILS % (AUTO) 53.2 % (42.2-75.2); PLATELET COUNT (AUTO) 293 K/uL (140-450); RED BLOOD CELL COUNT(AUTO) 4.45 MIL/uL (4.20-5.40); WHITE BLOOD COUNT (AUTO) 3.8 K/uL (4.8-10.8)
--- NOTE | 2020-04-17 07:10 | NUR ---
GAVE REPORT TO AM SHIFT NURSE FOR CONTINUITY OF CARE. PATIENT IN STABLE CONDITION.
--- NOTE | 2020-04-17 07:14 | NUR ---
RECEIVED REPORT FROM WASH PLANT OPERATOR RN FOR CONTINUITY OF CARE. PT IS AAOX4, [place] SPEAKING. PT COOPERATIVE AND ABLE TO MAKE NEEDS KNOWN. PATIENT LYING IN BED WATCHING TV. NO DISTRESS NOTED. DENIES ANY PAIN. PT SKIN INTACT. RESPIRATIONS EVEN, UNLABORED, ON O2 2L/MIN VIA NC. IV SITE INTACT, PATENT, AND INFUSING IVF PER MD ORDERS. REVIEWED PLAN OF CARE WITH PATIENT AND PATIENT VERBALIZED UNDERSTANDING. SAFETY MEASURES IN PLACE, CALL LIGHT WITHIN REACH. WILL ROUND FREQUENTLY ON TP. THROUGHOUT THE SHIFT.
[2020-04-17 07:41] LABS: ANION GAP 11.5 (8-16); CARBON DIOXIDE 28.8 mmol/L (21-32); POTASSIUM 3.3 mmol/L (3.5-5.1)
[2020-04-17 07:42] LABS: CREATININE 0.6 mg/dL (0.6-1.3)
[2020-04-17 07:43] LABS: ALBUMIN 2.7 g/dL (3.4-5.0); TOTAL BILIRUBIN 0.3 mg/dL (0.0-1.0)
[2020-04-17 08:00] VITALS: BP 119/69
[2020-04-17 08:01] LABS: PHOSPHORUS 3.2 mg/dL (2.5-4.9)
[2020-04-17] MEDS: LACTOBACILLUS RHAMNOSUS GG 1 EACH CAP PO SCH (08:47)
[2020-04-17] MEDS: CLINICAL MONITORING MC SCH (08:47)
[2020-04-17] MEDS: VITAMIN D 400 IU TAB PO SCH (08:47)
[2020-04-17] MEDS: BENZONATATE 100 MG CAPLF PO SCH ×3 (08:48→16:35)
[2020-04-17] MEDS: ZINC SULF 220 MG CAP PO SCH (08:48)
[2020-04-17] MEDS: LISINOPRIL 10 MG TAB PO SCH (08:48)
[2020-04-17] MEDS: ASCORBIC ACID 500 MG TAB PO SCH (08:48)
[2020-04-17] MEDS: ENOXAPARIN 100 MG/ML SYR SUBQ SCH (08:49)
[2020-04-17] MEDS ORDERED: POTASSIUM CHLORIDE 10 MEQ TABER PO SCH (09:00)
[2020-04-17] MEDS ORDERED: REMDESIVIR 100 MG IV SCH (09:00)
--- NOTE | 2020-04-17 09:05 | NUR ---
ADMINISTERED MORNING MEDS TO PT. PT TOLERATED WELL. ALL NEEDS MET. WILL CONTINUE TO ROUND FREQUENTLY ON PT.
--- NOTE | 2020-04-17 11:25 | NUR ---
PT RESTING IN BED WATCHING TV. ALL NEEDS MET. WILL CONTINUE TO ROUND FREQUENTLY ON PT.
[2020-04-17 12:00] VITALS: BP 145/86
[2020-04-17] MEDS: DOCUSATE SODIUM 100 MG GELCAP PO PRN (12:19)
--- NOTE | 2020-04-17 13:07 | NUR ---
PT RESTING IN BED. ALL NEEDS MET. WILL CONTINUE TO ROUND ON PT.
[2020-04-17] MEDS ORDERED: POLYETHYLENE GLYCOL 17 GM/PKT PO SCH (13:30)
--- NOTE | 2020-04-17 13:43 | NUR ---
TOLERATED INCENTIVE SPIROMETRY THERAPY WELL WITHOUT INCIDENT ENCOURAGED PATIENT WOTH ACKNOWLEDGEMENT TO USE INCENTIVE SPIROMETRY EVERY 1-2 HOURS WHILE AWAKE
[2020-04-17] MEDS ORDERED: BISACODYL 10 MG SUPP RC SCH (14:00)
--- NOTE | 2020-04-17 15:30 | NUR ---
PT TALKING ON PHONE WITH FAMILY. ALL NEEDS MET. DENIES PAIN/SOB AT THIS TIME. ALL NEEDS MET. WILL CONTINUE TO ROUND FREQUENTLY ON PT.
[2020-04-17 16:00] VITALS: BP 130/78
[2020-04-17] MEDS ORDERED: LISI10TA11 PO (16:46)
[2020-04-17] MEDS ORDERED: XAR10 PO (16:46)
[2020-04-17] MEDS ORDERED: BENZ100C6 PO (16:46)
[2020-04-17] MEDS ORDERED: VITC500 PO (16:46)
[2020-04-17] MEDS ORDERED: SYN.05 PO (16:46)
[2020-04-17] MEDS ORDERED: VITD400 PO (16:46)
[2020-04-17] MEDS ORDERED: ZINC220C28 PO (16:46)
[2020-04-17] MEDS ORDERED: ACET-1182 PO (16:46)
[2020-04-17] MEDS ORDERED: DOCU-299 PO (16:46)
--- NOTE | 2020-04-17 18:15 | NUR ---
PT DISCHARGED HOME FOR SELF CARE. PT SIGNED ALL DISCHARGE PAPERWORK. COVID-19 INFORMATIONAL HANDOUTS GIVEN TO PT IN [place]. PT INSTRUCTED ON NEW MEDICATIONS PRESCRIBED AND INSTRUCTED TO FOLLOWUP WITH MD WITHIN 3-5 BUSINESS DAYS. PT INSTRUCTED ON PROPER HYGIENE AND HOW TO SELF QUARANTINE AT HOME FROM HER FAMILY. PT VERBALIZED UNDERSTANDING OF TEACHING. IV REMOVED WITH TIP INTACT. ALL PERSONAL BELONGINGS TAKEN HOME WITH PT. COUPON FOR XARELTO GIVEN TO PT FOR EASE OF AVAILABILITY. PT DISCHARGED IN STABLE CONDITION. PT WENT HOME ACCOMPANIED BY HER .
== END 2020-04-17 18:15 | disposition home or self-care (01) | DRG 133 ==
LOC: EEVIPCON 14:27 → MED 14:27 → MTU 17:21
PROVIDERS: ADMIT General Practice; ATTEND General Practice
PROC: 30233K1 Transfusion of Nonautologous Frozen Plasma into Peripheral Vein, Percutaneous Approach (ICD-10-PCS; principal; 2020-04-16)
DX: J96.01 Acute respiratory failure with hypoxia (principal); U07.1 COVID-19; J12.9 Viral pneumonia, unspecified; E44.0 Moderate protein-calorie malnutrition; E87.6 Hypokalemia; E83.39 Other disorders of phosphorus metabolism; E66.9 Obesity, unspecified; E02 Subclinical iodine-deficiency hypothyroidism; Z68.36 Body mass index [BMI] 36.0-36.9, adult
CPT/HCPCS: 36415; 71045; 80053; 80305; 81001; 82150; 82550; 82553; 82728; 83036; 83605; 83615; 83690; 83735; 83880; 84100; 84439; 84443; 84484; 85025; 85379; 85384; 85610; 85651; 85730; 86140; 86886; 86900; 86901; 87040; 87070; 87081; 87086; 87205; 87804; 93005; 94664; 96365; 96366; 96368; 96375; 99291; J0456; J0696; J1650; J1885; J3480; J7030; J7060; P9017; Q0092; U0003-CS

== ENCOUNTER 2023-04-14 17:44 | Emergency (ER) | payer MEDICAID ==
[~2023-04-14] VITALS: Ht 162.6 cm; Wt 114.3 kg
[~2023-04-14 17:44] MED LIST: ACET-1182 PO; BENZ100C6 PO; DOCU-299 PO; LISI10TA30 PO; SYN.05 PO; VITC500 PO; VITD400 PO; XAR10 PO; ZINC220C28 PO
[2023-04-14 17:51] VITALS: BP 186/86
--- NOTE | 2023-04-14 19:34 | NUR ---
Patient discharged with v/s stable. Written and verbal after care instructions given and explained. Patient verbalized understanding. Ambulatory with steady gait. All questions addressed prior to discharge. Advised to follow up with PMD.
== END 2023-04-14 19:34 | disposition home or self-care (01) ==
LOC: MED 17:44
DX: S91.031A Puncture wound without foreign body, right ankle, initial encounter (principal); I10 Essential (primary) hypertension; Z79.899 Other long term (current) drug therapy; X58.XXXA Exposure to other specified factors, initial encounter; Y93.89 Activity, other specified; Y92.89 Other specified places as the place of occurrence of the external cause; Y99.8 Other external cause status
CPT/HCPCS: 73610; 99283